=== PATIENT | male | born 2000 | race African-American/Black ===

== ENCOUNTER 2018-02-09 19:57 | Emergency (ER) | payer OTHER, SELFPAY ==
--- NOTE | 2018-02-09 20:42 | RAD ---
LEFT SHOULDER TWO VIEWS: HISTORY: Pain in the left shoulder and deformity. The patient ran into someone at football practice. COMPARISON: None. FINDINGS: Two views of the left shoulder show an anterior dislocation of the glenohumeral joint. No fracture i s seen. IMPRESSION: Left anterior shoulder dislocation. POS: [facility]
[2018-02-09] MEDS ORDERED: Lidocaine 1% PF 5 ML VIAL ONE (20:43)
--- NOTE | 2018-02-09 21:40 | RAD ---
LEFT SHOULDER THREE VIEWS: HISTORY: Status post reduction. FINDINGS: The glenohumeral joint space is preserved. No evidence of fracture or dislocation. The distal clavicle is slightly high-riding with respect to the acromion. Correlate for grade 1 AC j oint separation. IMPRESSION: Interval reduction. No fracture. Correlate for grade 1 AC joint separation. POS: [facility]
== END 2018-02-09 21:31 | disposition home or self-care (01) ==
LOC: SCSER 19:57
DX: S43.015A Anterior dislocation of left humerus, initial encounter (principal); D57.3 Sickle-cell trait; W51.XXXA Accidental striking against or bumped into by another person, initial encounter; Y93.61 Activity, american tackle football; Y99.8 Other external cause status
CPT/HCPCS: 23650; J2001

== ENCOUNTER 2022-10-31 21:06 | Inpatient (IN) | payer BC ==
[~2022-10-31 21:06] MED LIST: Iopamidol-370 76% 500 ML MDV (1 ML CHARGE) ONE
[2022-10-31] MEDS ORDERED: Ketorolac Tromethamine 30 MG/ML VIAL ONE (22:24)
[2022-10-31] MEDS ORDERED: Morphine 4 MG/ML VIAL ONE (22:25)
[2022-10-31 23:58] LABS: #Monocytes 1.1 thou/uL (0.11-0.59); #Neutrophils 7.4 thou/uL (1.40-6.50); %Basophils 0.2 % (0.0-1.0); %Eosinophils 0.3 % (0.0-10.0); %Lymphocytes 11.8 % (21.0-51.0); %Monocytes 11.6 % (0.0-10.0); %Neutrophils 75.9 % (42.0-75.0); Hemoglobin 11.1 g/dL (14.0-18.0); Mean Corpuscular HGB CONC 36.2 g/dL (32.0-36.0); Mean Corpuscular Hemoglobin 31.3 pg (27.0-31.0); Mean Corpuscular Volume 86.5 fl (78.0-98.0); Mean Platelet Volume 9.4 fL (7.4-10.4); Platelet Count 173 10x3/uL (130-400); RBC Distribution Width 12.5 % (11.5-14.5); Red Blood Cell (RBC) Count 3.55 mill/uL (4.70-6.10); White Blood Cell (WBC) Count 9.8 10x3/uL (4.8-10.8)
[2022-11-01] MEDS ORDERED: CEFAZOLIN 2 GM in Sodium Chloride 0.9% 100 ML IVPB SCH (00:45)
[2022-11-01 00:47] LABS: Anion Gap 12 mmol/L (10-20); BUN (Urea Nitrogen) 10 mg/dL (8.9-20.6); Bilirubin, Total 1.4 mg/dL (0.2-1.2); Calc. Creatinine Clearance 0 mL/min (70-130); Calcium 8.9 mg/dL (7.8-10.44); Carbon Dioxide 23 mmol/L (22-29); Chloride 106 mmol/L (98-107); Estimated GFR 124; Glucose 123 mg/dL (70-105); Potassium 3.8 mmol/L (3.5-5.1); Protein, Total 5.9 g/dL (6.0-8.3); Sodium 137 mmol/L (136-145)
[2022-11-01] MEDS ORDERED: Morphine 2 MG/ML VIAL SLOW IVP PRN (00:47)
[2022-11-01 00:48] LABS: ALT (SGPT) 17 U/L (8-55); AST (SGOT) 20 U/L (5-34); Albumin 3.9 g/dL (3.5-5.0); Alkaline Phosphatase 47 U/L (40-110)
[2022-11-01] MEDS ORDERED: Ondansetron PF 4 MG/2 ML Vial IVP PRN (00:56)
[2022-11-01] MEDS ORDERED: Lactated Ringer's 1,000 ML IV SCH (01:00)
[2022-11-01 02:16] VITALS: BMI 21.9
[2022-11-01] MEDS: Acetaminophen 325 MG TAB PO SCH ×6 (03:14→20:59)
[2022-11-01] MEDS: traMADol HCl 50 MG TAB PO PRN ×2 (03:14→21:00)
[2022-11-01] MEDS: Ibuprofen 200 MG TAB PO SCH ×3 (05:52→17:49)
[2022-11-01 05:55] LABS: #Eosinphils 0.1 thou/uL (0.0-0.7); #Monocytes 1.2 thou/uL (0.11-0.59); #Neutrophils 5.3 thou/uL (1.40-6.50); %Basophils 0.5 % (0.0-1.0); %Eosinophils 1.3 % (0.0-10.0); %Lymphocytes 23.5 % (21.0-51.0); %Monocytes 13.9 % (0.0-10.0); %Neutrophils 60.6 % (42.0-75.0); Hemoglobin 10.4 g/dL (14.0-18.0); Mean Corpuscular HGB CONC 34.9 g/dL (32.0-36.0); Mean Corpuscular Hemoglobin 31.3 pg (27.0-31.0); Mean Platelet Volume 9.7 fL (7.4-10.4); Platelet Count 167 10x3/uL (130-400); RBC Distribution Width 12.7 % (11.5-14.5); Red Blood Cell (RBC) Count 3.32 mill/uL (4.70-6.10); White Blood Cell (WBC) Count 8.7 10x3/uL (4.8-10.8)
[2022-11-01 05:57] LABS: Mean Corpuscular Volume 89.8 fl (78.0-98.0)
[2022-11-01 06:20] LABS: Anion Gap 12 mmol/L (10-20); BUN (Urea Nitrogen) 10 mg/dL (8.9-20.6); Calc. Creatinine Clearance 126 mL/min (70-130); Calcium 8.7 mg/dL (7.8-10.44); Carbon Dioxide 24 mmol/L (22-29); Chloride 105 mmol/L (98-107); Estimated GFR 109; Glucose 96 mg/dL (70-105); Potassium 3.6 mmol/L (3.5-5.1); Sodium 137 mmol/L (136-145)
[2022-11-01] MEDS ORDERED: Bupivacaine HCl 0.5%/Epinephrine 1:200,000/PF 30 ml Vial ONE (06:56)
[2022-11-01] MEDS ORDERED: Protamine Sulfate 50 MG/5 ML VIAL ONE (06:56)
[2022-11-01] MEDS ORDERED: Heparin 5,000 UNITS/ML VIAL ONE (06:56)
[2022-11-01] MEDS ORDERED: CEFAZOLIN 2 GM VIAL ONE (07:15)
[2022-11-01] MEDS ORDERED: Sodium Chloride 0.9% 100 ML ONE (07:15)
[2022-11-01] MEDS ORDERED: HYDROmorphone 0.5 MG/0.5 ML SYRINGE ONE (07:18)
[2022-11-01] MEDS ORDERED: Midazolam HCl 2 mg/2 ml Vial ONE (07:18)
[2022-11-01] MEDS ORDERED: fentaNYL PF 100 MCG/2 ML SYRINGE ONE (07:18)
[2022-11-01 07:27] LABS: INR-International Normal Ratio 1.3; PTT 27.7 sec (22.9-36.1); Prothrombin Time 16.3 sec (12.0-14.7)
[2022-11-01] MEDS ORDERED: Ketorolac Tromethamine 30 MG/ML VIAL ONE (07:32)
[2022-11-01] MEDS ORDERED: PROPOFOL 200 MG/20 ML VIAL ONE (07:32)
[2022-11-01] MEDS ORDERED: Dexamethasone 20 MG/5 ML VIAL ONE (07:32)
[2022-11-01] MEDS ORDERED: Ondansetron PF 4 MG/2 ML Vial ONE (07:32)
[2022-11-01] MEDS ORDERED: Esmolol 100 MG/10 ML VIAL ONE (07:32)
[2022-11-01] MEDS ORDERED: Lidocaine 1% PF 5 ML VIAL ONE (07:32)
[2022-11-01] MEDS: Famotidine 20 MG TAB PO SCH (08:38)
[2022-11-01] MEDS ORDERED: Meperidine HCl/PF 25 MG/ML VIAL ONE (09:05)
[2022-11-02] MEDS: Ibuprofen 200 MG TAB PO SCH ×3 (01:07→11:23)
[2022-11-02] MEDS: traMADol HCl 50 MG TAB PO PRN ×2 (01:09→06:42)
[2022-11-02] MEDS: Acetaminophen 325 MG TAB PO SCH ×4 (01:09→12:56)
[2022-11-02 06:15] LABS: #Eosinphils 0.1 thou/uL (0.0-0.7); #Monocytes 1.3 thou/uL (0.11-0.59); #Neutrophils 6.6 thou/uL (1.40-6.50); %Basophils 0.3 % (0.0-1.0); %Eosinophils 0.6 % (0.0-10.0); %Lymphocytes 15.3 % (21.0-51.0); %Monocytes 13.4 % (0.0-10.0); Hemoglobin 8.4 g/dL (14.0-18.0); Mean Corpuscular HGB CONC 34.6 g/dL (32.0-36.0); Mean Corpuscular Hemoglobin 31.2 pg (27.0-31.0); Mean Corpuscular Volume 90.3 fl (78.0-98.0); Mean Platelet Volume 10.1 fL (7.4-10.4); Platelet Count 138 10x3/uL (130-400); Red Blood Cell (RBC) Count 2.69 mill/uL (4.70-6.10); White Blood Cell (WBC) Count 9.4 10x3/uL (4.8-10.8)
[2022-11-02] MEDS: Famotidine 20 MG TAB PO SCH (10:05)
[2022-11-02 11:51] VITALS: BP 159/63; TEMP 97.3
[2022-11-02] MEDS ORDERED: Ferrous Sulfate 325 MG TAB PO SCH (17:00)
[2022-11-02] MEDS ORDERED: Ascorbic Acid 500 mg Chewable Tablet PO SCH (21:00)
== END 2022-11-02 14:53 | disposition home or self-care (01) | DRG 501 ==
LOC: ERS 21:06 → SURG A 11-01 00:38 → OBSVTOIN 11-01 00:38
PROVIDERS: ADMIT Surgery; ATTEND Surgery
PROC: 0Y380ZZ Control Bleeding in Left Femoral Region, Open Approach (ICD-10-PCS; principal; 2022-11-01)
PROC: 0KCR0ZZ Extirpation of Matter from Left Upper Leg Muscle, Open Approach (ICD-10-PCS; 2022-11-01)
PROC: 0LQM0ZZ Repair Left Upper Leg Tendon, Open Approach (ICD-10-PCS; 2022-11-01)
PROC: 0KQR0ZZ Repair Left Upper Leg Muscle, Open Approach (ICD-10-PCS; 2022-11-01)
PROC: 0LBM0ZZ Excision of Left Upper Leg Tendon, Open Approach (ICD-10-PCS; 2022-11-01)
DX: S76.112A Strain of left quadriceps muscle, fascia and tendon, initial encounter (principal); D62 Acute posthemorrhagic anemia; S75.9 Injury of unspecified blood vessel at hip and thigh level; S70.12XA Contusion of left thigh, initial encounter; D57.3 Sickle-cell trait; F10.90 Alcohol use, unspecified, uncomplicated; F12.90 Cannabis use, unspecified, uncomplicated; R00.0 Tachycardia, unspecified; I10 Essential (primary) hypertension; Z79.2 Long term (current) use of antibiotics; Z79.899 Other long term (current) drug therapy; X50.0XXA Overexertion from strenuous movement or load, initial encounter
CPT/HCPCS: 36415; 80048; 80053; 85025; 85610; 85730; 86850; 86900; 86901; 96372; 96374; 96375; 99283; C1713; J1100; J1170; J1644; J1885; J2175; J2250; J2270; J2272; J2405; J2704; J2720; J3490; J7120; Q9967

== ENCOUNTER 2023-06-02 21:35 | Emergency (ER) | payer BC ==
[2023-06-02 23:01] LABS: SARS-CoV-2 NAA Rapid Test Not Detected (NotDetected)
== END 2023-06-02 23:20 | disposition home or self-care (01) ==
LOC: ERS 21:35
DX: R07.89 Other chest pain (principal); F17.290 Nicotine dependence, other tobacco product, uncomplicated
CPT/HCPCS: 99284

== ENCOUNTER 2024-12-30 11:04 | Emergency (ER) | payer BC | END 2024-12-30 12:29 | disposition home or self-care (01) | LOC: ERS 11:04 | DX: M79.642 Pain in left hand (principal); Y93.K9 Activity, other involving animal care | CPT/HCPCS: 99282 ==